=== PATIENT | male | born 1980 | race Hispanic/Latino ===

== ENCOUNTER 2018-05-29 17:03 | Inpatient (IN) | payer BC ==
[~2018-05-29] VITALS: Ht 177.8 cm; Wt 84.8 kg
--- OUTSIDE RECORDS SUMMARY | 2018-05-29 17:06 | XMS REPORT ---
Author Author [facility] Address Unknown Phone Unavailable Care Team Providers Care Vocational Training Teacher Name Role Phone Unavailable Unavailable Payers Payer Name Policy Type Policy Number Effective Date Expiration Date Problems This patient has no known problems. Allergies, Adverse Reactions, Alerts Allergy Name Allergy Type Status Severity Reaction(s) Onset Date Inactive Date Treating Clinician Comments No Known Allergies DA Active U 2018-05-21 00:00:00 No Known Contrast Allergies DA Active U 2000-10-27 00:00:00 No Known Drug Allergies DA Active U 2000-10-27 00:00:00 No Known Food Allergies DA Active U 2000-10-27 00:00:00 No Known Other Allergies DA Active U 2000-10-27 00:00:00 Medications This patient has no known medications.
[2018-05-29 17:39] LABS: BASOPHILS # (AUTO) 0.1 (0.0-0.1); BASOPHILS % 0.7 % (0.0-1.0); EOSINOPHILS # (AUTO) 0.2 (0.0-0.4); EOSINOPHILS % 1.2 % (0.0-6.0); HEMATOCRIT 45.4 % (38.2-49.6); HEMOGLOBIN 16.2 g/dL (14.0-18.0); LYMPHOCYTES # (AUTO) 3.2 (1.0-3.2); LYMPHOCYTES % 21.3 % (18.0-39.1); MEAN CORPUSCULAR HEMOGLOBIN 31.4 pg (28-32); MEAN CORPUSCULAR HGB CONC 35.7 g/dL (31-35); MONOCYTES # (AUTO) 1.4 (0.2-0.8); MONOCYTES % 9.2 % (4.4-11.3); NEUTROPHILS # (AUTO) 10.1 (2.1-6.9); NEUTROPHILS % 67.2 % (38.7-80.0); PLATELET COUNT 409 x10e3/uL (140-360); RED BLOOD COUNT 5.16 x10e6/uL (4.3-5.7); RED CELL DISTRIBUTION WIDTH 11.6 % (11.7-14.4)
[2018-05-29 17:51] LABS: INR 0.97; PROTHROMBIN TIME 13.8 seconds (11.9-14.5)
[2018-05-29 17:52] LABS: PARTIAL THROMBOPLASTIN TIME 34.7 seconds (23.8-35.5)
[2018-05-29 18:17] LABS: ALANINE AMINOTRANSFERASE 14 IU/L (0-55); ALBUMIN 4.2 g/dL (3.5-5.0); ALBUMIN/GLOBULIN RATIO 1.1 (0.8-2.0); ALKALINE PHOSPHATASE 92 IU/L (40-150); ANION GAP 12.7 mmol/L (8-16); BLOOD UREA NITROGEN 21 mg/dL (7-26); BUN/CREATININE RATIO 16 (6-25); CALCIUM 9.3 mg/dL (8.4-10.2); CARBON DIOXIDE 24 mmol/L (22-29); CHLORIDE 102 mmol/L (98-107); CREATINE KINASE 48 IU/L (30-200); EST GLOMERULAR FILTRATION RATE > 60 ML/MIN (60-); GLUCOSE 109 mg/dL (74-118); POTASSIUM 3.7 mmol/L (3.5-5.1); SODIUM 135 mmol/L (136-145)
--- NOTE | 2018-05-29 18:52 | Diagnostic Imaging Report ---
CT BRAIN WO HISTORY: Recent CVA, viral meningitis, left-sided weakness, tingling left arm COMPARISON: None. TECHNIQUE: Noncontrast axial scans were obtained from skull base to the vertex. Coronal and sagittal reconstructions obtained from the axial data. One or more of the following dose reduction techniques were used: Automated exposure control, adjustment of the mA and/or kV according to patient size, and/or utilization of iterative reconstruction technique. Beam hardening artifacts obscure some details. DISCUSSION: Scalp/Skull: Subcutaneous fat stranding along the posterior scalp is nonspecific. No calvarial fracture is seen. Brain sulci: Appropriate for patient's age. Ventricles: Normal in size and configuration. No hydrocephalus. Extra-axial spaces: No masses or fluid collections. 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 Otherwise, no additional masses, hemorrhage, or large vascular territory acute infarct. Ramirez-white matter differentiation is overall preserved. Dural sinuses: No abnormal densities. Sellar/Suprasellar region: Intact. Skull base: Intact. Incidental findings: There is minimal mucosal thickening in the right anterior ethmoid air cells. IMPRESSION: 1. 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 2. No additional intracranial abnormalities. Signed by: Dr. Eleno Whittaker M.D. on 05/29/2018 6:49 PM
[2018-05-29] MEDS ORDERED: ONDANSETRON HCL INJ 2MG/ML 2ML 2 MG/ML VIAL IV PRN ×2 (20:45)
[2018-05-29] MEDS ORDERED: PROMETHAZINE 12.5MG/ NACL 0.9% 12.5 MG/50 ML BAG IV PRN (20:45)
[2018-05-29] MEDS ORDERED: ZOLPIDEM TARTRATE 5 MG TAB PO PRN (20:45)
[2018-05-29] MEDS ORDERED: HYDROCODONE/APAP 7.5MG-325MG 1 EA TAB PO PRN (20:45)
[2018-05-29] MEDS ORDERED: DIPHENHYDRAMINE HCL INJ 50 MG/ML VIAL IV PRN (20:45)
[2018-05-29] MEDS ORDERED: LACTULOSE SYRUP 20 GM/30 ML UDC PO PRN (20:45)
[2018-05-29] MEDS ORDERED: HYDROMORPHONE 1MG/1ML INJ IV PRN (20:45)
[2018-05-29] MEDS ORDERED: IBUPROFEN 200 MG TAB PO PRN (20:45)
[2018-05-29 20:55] VITALS: BP 141/83
--- NOTE | 2018-05-29 20:55 | NUR ---
Patient arrived to floor from ED via wheelchair as new admit. at bedside. Pt placed on droplet isolation for diagnosis of Viral meningitis. Pt notably weak on left upper and left lower extremity. Pt states have difficulty swallowing regular solid food but able to drink or sip some water. Walker at bedside for prn use. Pt instructed need to call especially when needing to get up and out bed prn. Urinal at bedside. Call [facility]ca within reach. Will monitor closely.
[2018-05-29 21:00] VITALS: BP 141/83
[2018-05-29] MEDS ORDERED: HYDROMORPHONE 2MG/ML 2 MG/ML ML IV PRN (21:00)
--- NOTE | 2018-05-29 21:11 | NUR ---
REPORT CALLED TO FLOOR. SPOKE TO RN ABOUT MEDICAL RECORDS NEEDED FROM [facility].
[2018-05-30] VITALS (8 sets, daily range): BP systolic 115–155; BP diastolic 73–88
--- NOTE | 2018-05-30 05:29 | NUR ---
Patient sleeping comfortably. Condition stable. Call [facility]ca within reach.
[2018-05-30 06:00] LABS: BASOPHILS # (AUTO) 0.1 (0.0-0.1); BASOPHILS % 0.7 % (0.0-1.0); EOSINOPHILS # (AUTO) 0.2 (0.0-0.4); HEMOGLOBIN 14.1 g/dL (14.0-18.0); LYMPHOCYTES # (AUTO) 3.2 (1.0-3.2); LYMPHOCYTES % 26.3 % (18.0-39.1); MEAN CORPUSCULAR HEMOGLOBIN 30.3 pg (28-32); MEAN CORPUSCULAR HGB CONC 35.3 g/dL (31-35); MONOCYTES # (AUTO) 1.2 (0.2-0.8); MONOCYTES % 10.1 % (4.4-11.3); NEUTROPHILS # (AUTO) 7.4 (2.1-6.9); NEUTROPHILS % 60.6 % (38.7-80.0); PLATELET COUNT 364 x10e3/uL (140-360); RED BLOOD COUNT 4.65 x10e6/uL (4.3-5.7); RED CELL DISTRIBUTION WIDTH 11.7 % (11.7-14.4)
[2018-05-30 06:28] LABS: ANION GAP 11.2 mmol/L (8-16); BLOOD UREA NITROGEN 16 mg/dL (7-26); BUN/CREATININE RATIO 16 (6-25); CALCIUM 8.5 mg/dL (8.4-10.2); CARBON DIOXIDE 22 mmol/L (22-29); CHLORIDE 105 mmol/L (98-107); CREATININE, SERUM 1.03 mg/dL (0.72-1.25); EST GLOMERULAR FILTRATION RATE > 60 ML/MIN (60-); GLUCOSE 104 mg/dL (74-118); POTASSIUM 3.2 mmol/L (3.5-5.1); SODIUM 135 mmol/L (136-145)
--- NOTE | 2018-05-30 07:25 | NUR ---
PT IN BED SLEEPING NO DISTRESS NOTED,LINH JOE
--- NOTE | 2018-05-30 08:24 | NUR ---
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 CM/SW role and care transitions discussed. Anticipated discharge plan discussed along with duration of care. CM/SW discussed patients right to make decisions in care. CM/SW work hours given. 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 Education Needs: NONE IMM/AMES given and signed (if applicable): N/A Goal for discharge:TO DISCHARGE AND RETURN TO WORK RANJIT CM/SW left business card at the bedside with contact information. Name and number was also written on the patients whiteboard. Patient verbalized understanding of discussion. CM will follow-up with ongoing discharge and transition of care needs.
[2018-05-30] MEDS: FAMOTIDINE 20 MG TAB PO SCH ×2 (08:30→16:30)
[2018-05-30] MEDS ORDERED: POTASSIUM CHLORIDE 20 MEQ TAB CR PO STA (11:49)
[2018-05-30] MEDS ORDERED: LACTULOSE SYRUP 20 GM/30 ML UDC PO NR (13:00)
--- NOTE | 2018-05-30 14:33 | NUR ---
ST Note: Order received for bedside swallow eval. Pt out of room for procedure. Pt's at bedside. Gathered pertinent medical history from pt's spouse and provided ed re: the role of this service. Provided ed re: general swallow precautions. Will f/u later to complete eval time permitting.
--- NOTE | 2018-05-30 15:45 | NUR ---
Visit made by the Spiritual Care Department Pastoral Visitor, Nely Choi. PV provided pastoral presence, prayer, hospitality, and supportive listening. Pastoral Visitor informed pt/family of the scope of Pol[employer] T[employer] Services and availability. SHIRA SHEETS Edge Setter Spiritual Care Department O: [phone] Pager: [phone] ([phone] number calling from)
--- NOTE | 2018-05-30 16:06 | Diagnostic Imaging Report ---
Examination: MRI BRAIN WITHOUT CONTRAST History: Headache. Comparison studies: Head CT performed May 29, 2018 Technique: Sagittal T2; axial DWI, FLAIR, GRE or SWI, T1, Coronal FLAIR. Intravenous contrast: None Findings: Scalp: No abnormal signal. No masses. Bone marrow: Normal in signal intensity. Brain volume: Adequate for age. No volume loss. Ventricles: Normal in size and configuration. No hydrocephalus. Extra-axial spaces: No abnormalities. Parenchyma: There are a few scattered punctate areas of T2/FLAIR hyperintensity in the periventricular and subcortical white matter, nonspecific. No masses, hemorrhage, or acute vascular insults. Suprasellar and sellar region: No abnormalities. Craniocervical junction: No abnormalities. The foramen magnum is patent. No Chiari malformations. Vessels: Normal flow-voids in the arteries and sinuses. Additional findings:None. IMPRESSION: 1. No acute intracranial abnormalities. 2. Minimal chronic microvascular ischemic change. Signed by: Dr. Marisel Hall M.D. on 05/30/2018 4:03 PM
--- NOTE | 2018-05-30 17:06 | Consultation ---
DATE OF CONSULTATION: INFECTIOUS DISEASE CONSULTATION REASON FOR CONSULTATION: Meningitis, viral. HISTORY OF PRESENT ILLNESS: This patient, who is a 38-year-old male, denies any past medical history. He was in good health until about 10 days ago when he had weakness. He went to the emergency room at [facility] where he was admitted. He was there for about 3 to 4 days. He was seen by Neurology there. LP was done, and he was told he had meningitis, his white count apparently was 15, but he was also told he had a stroke. He had left-sided weakness. The patient was there for a few days and was discharged home with no medication or antibiotic or anything that he could think of. He went to see his primary care physician, who told him that he needed to be in the hospital. His weakness on the left side is about the same. There is no fever, no chills. There are no new complaints. There is no headache or visual changes or hearing changes. There is no confusion through the whole episode. Patient is being admitted. Infectious Disease was asked to see him. He is currently on Tylenol, Benadryl, Pepcid, hydrocodone, lactulose. LABORATORY DATA: White count on admission was 15.5, today is 12.1. Hemoglobin of 14, hematocrit of 40. His sodium 135, potassium 3.2, creatinine 1.03. When he first came, his creatinine was 1.30. The patient had an MRI of the brain which was done without contrast, showed no acute abnormality. 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 PHYSICAL EXAMINATION GENERAL: He is alert, oriented, does not seem to be in acute distress. VITAL SIGNS: Stable. There is no fever since admission. HEENT: He does not appear icteric. NECK: Supple. CHEST: Clear. HEART: S1 and S2. No S3 or S4, no murmur. ABDOMEN: Soft. Bowel sounds present. No tenderness. EXTREMITIES: No edema. He did have some left-sided weakness, but he was able to lift up his arms and his legs. He was able to have a strong manufacturing analyst. IMPRESSION: Stroke. Will need to get the old record. Further recommendations depending on the above. Neurology is consulted. Doubt meningeal encephalitis. Will obtain HIV. Will obtain blood cultures and will get a chest x-ray. A component of acute kidney injury, probably dehydration, better. Patient stable. Will follow with you. Job#: [id number] EV
--- NOTE | 2018-05-30 17:18 | NUR ---
Nutrition Intervention Note RD Recommendation(s) for Physician: -Continue cardiac diet as ordered; diet texture downgraded to mechanical soft for better tolerance -Pending PAINT BOOTH OPERATOR evaluation -Rec Ensure Compact TID due to hx of weight loss The patient meets criteria for MODERATE protein-calorie malnutrition. Plan of Care: RD following, monitoring for tolerance and adequacy, ONS rec Nutrition reason for involvement: Nutrition Risk Trigger MST RD Assessment 05/30 Chart reviewed. 38yo M, who is admitted for meningitis. Pt was discussed during rounds. Visited pt in the room. 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 Pt reports of ~9lbs weight loss in 2 weeks. UBW ~210lbs. However, appetite has slightly improved today with some complain of swallowing difficulty. Pt states when I take a few bites of food, it stuck in my throat and I had to drink water to get it down. No chewing difficulty noted. Pt complains of constipation x 9 days but has been passing gas. Discussed case with Dr. Menon. PAINT BOOTH OPERATOR consulted. Ensure compact has been ordered. Will continue to monitor and follow. Principal Problems/Diagnoses: viral meningitis PMH: no H&P in chart GI: constipated x 9 days, per pt Skin: intact Labs: (05/30) Na 135 L, K 3.2 L Meds: pepcid Ht: 70in Wt: 189lb BMI: 27.2kg/m2 IBW: 166lb Malnutrition Evaluation (05/30/2018) The patient meets criteria for MODERATE protein-calorie malnutrition. Energy intake: <75% of estimated energy requirements for >7 days Weight loss: >2% in 1week (Acute) Fat loss: None Muscle loss: None Supporting Evidence: Fluid accumulation: unable to evaluate Functional Status: no changes Nutrition Prescription (Diet Order): cardiac diet Estimated Nutritional Needs: Calories: 1892 2150kcal (22-25kcal/kg/d) Weight used : Actual BW 86kg Protein : 86 129g(1-1.5g/kg/d) Weight used: Actual BW 86kg Diet Adequacy: N/A Diet Education Needs Assessment: Diet education not indicated. Nutrition Care Level: mod Nutrition Diagnosis: Malnutrition related to acute illness as evidenced by unintentional weight loss and decreased energy intake. Goal: Patient will meet 75-100% of estimated needs by follow up Progress: Progressing Interventions: Mineral-modified diet, Commercial beverage, Recommended Modifications, Skill Development, Collaboration with other providers Monitoring/Evaluation: Total energy intake, Total protein intake, Modified diet, Liquid supplement, Weight change Signed: Yaa Walter MS, RD, LD
--- NOTE | 2018-05-30 17:51 | NUR ---
dr morales here orders written ,pt denies [pain
[2018-05-30] MEDS ORDERED: VALPROATE SOD INJ 500 MG in SODIUM CHLORIDE 0.9% 100 ML 100 ML IV SCH (18:00)
[2018-05-30] MEDS: SODIUM CHLORIDE 0.9% 1000ML 1,000 ML IV SCH (18:37)
[2018-05-30] MEDS: METHYLPREDNISOLONE SOD SUCC 125 MG/2ML VIAL IV SCH (18:37)
[2018-05-30] MEDS: PROMETHAZINE 25MG/ NS 50ML (IV) IV SCH (18:37)
--- NOTE | 2018-05-30 19:05 | NUR ---
Patient visited in room during nursing rounds. Patient alert and oriented x3. Patient appear comfortable. IVF (NS @ 125ml/hr) running. Call [facility] within reach. Will monitor closely.
--- NOTE | 2018-05-30 19:50 | NUR ---
Patient c/o right arm to right shoulder feeling numb with tingling sensation described as "ants crawling on arm." Patient request to turn off IVF temporarily for possible relief and requested for Motrin pill for achy feeling. Informed patient will call Dr. Shane to report patient current condition.
--- NOTE | 2018-05-30 19:58 | NUR ---
Called Dr. Shane and informed about patient complaint of tingling and numb feeling on right arm radiating towards right shoulder. MD aware and emphasized patient current complaint of tingling and numbness is not connected to any current medications or IVF. MD stated patient needs to relax.
--- NOTE | 2018-05-30 20:05 | NUR ---
Patient given Motrin 400mg PO for c/o right arm and right shoulder aches.
--- NOTE | 2018-05-30 20:30 | NUR ---
Patient asleep and appear comfortable at this time. at bedside.
[2018-05-31] VITALS (7 sets, daily range): BP systolic 133–146; BP diastolic 73–84
[2018-05-31] MEDS: PROMETHAZINE 25MG/ NS 50ML (IV) IV SCH (00:12)
[2018-05-31] MEDS: METHYLPREDNISOLONE SOD SUCC 125 MG/2ML VIAL IV SCH (00:12)
--- NOTE | 2018-05-31 00:52 | Consultation ---
DATE OF CONSULTATION: May 30, 2018 NEUROLOGY CONSULT NOTE HISTORY OF PRESENT ILLNESS: Mr. Lei is a 38-year-old [id number] man with past medical history significant for occasional migraines, admitted to [facility] on May 29, 2018 with a severe headache and left hemiparesis. Mr. Lei experienced the sudden onset of left hemiparesis on May 21, 2018. In addition to left-sided weakness, the patient endorses tingling over the left side of the face and left hand and arm. He reports his left leg is cool to the touch. In addition to these unilateral deficits, the patient endorses a headache which is described as follows: The pain is unilateral over the right side of the head and does not radiate. The pain is described as throbbing and is rated as 7/10 on average. At present, the pain is a 4/10. Associated with the headache are photophobia and phonophobia, which have gradually improved over the past several days. Mr. Lei endorses nausea without vomiting and dizziness which cannot be further described, associated with the headache as well. On May 21, 2018, Mr. Lei presented to [facility] with the above described symptoms. In the emergency center, a CT of the brain without contrast was performed and was reportedly negative for recent large territorial ischemia or hemorrhage. Suspecting the patient had experienced a stroke, intravenous thrombolytics (tPA) were administered. However, there was no improvement of the patient's symptoms. A MRI of the brain without contrast was performed the following day, but did not show evidence of a recent stroke. However, the MRI of the brain reportedly showed findings compatible with migraines. Therefore, Mr. Lei received treatment with different medications for a complex migraine. On the day prior to his discharge, the patient underwent a lumbar puncture, which was compatible with viral meningitis. Mr. Lei reports he was sent home the day after the lumbar puncture. He continued to have the headache and left-sided neurological symptoms as described above. The patient was discharged home with oral steroids, anti-inflammatory medication, and hydrocodone. Mr. Lei took the prescribed medications while at home. However, he experienced multiple side effects, including visual hallucinations, associated with taking the medicines, especially hydrocodone. Therefore, Mr. Lei stopped taking all of the above medications on Monday, May 28, 2018. On May 29, 2018, the patient presented to his primary care physician's office for further evaluation and treatment of his symptoms. Mr. Lei was reportedly febrile in his PCP's office. Therefore, the patient was sent to the emergency center at [facility] so he could be admitted for further evaluation and treatment of his symptoms. Mr. Lei does endorse a history of regular migraines which respond to treatment with dqqb-vzf-fxyytwn analgesics (Excedrin). The patient's mother and the son have/had migraines. REVIEW OF SYSTEMS: Nausea, vomiting, weakness of the left arm and leg, numbness and tingling of the left arm and leg, neck pain, headache, photophobia, phonophobia, and dizziness. Otherwise, the 12-point review of systems is negative. PAST MEDICAL HISTORY: Occasional migraines. PAST SURGICAL HISTORY: None. PAST HOSPITALIZATIONS: As per history of present illness. FAMILY MEDICAL HISTORY: Hypertension, diabetes mellitus, strokes. As stated in the history of present illness, the patient's mother and a son both have/had migraines. SOCIAL HISTORY: Mr. Lei is . 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 The patient does report occasional tobacco use. He smokes 1 to 2 cigarettes every 2 to 3 months. The patient reports social alcohol use. Mr. Lei does not endorse current or prior recreational drug use. HOME MEDICATIONS: None. ALLERGIES: NO KNOWN DRUG ALLERGIES. NO KNOWN FOOD ALLERGIES. NO KNOWN ALLERGIES TO LATEX. NO KNOWN ALLERGIES TO IODINE OR OTHER CONTRAST MATERIALS. PHYSICAL EXAMINATION: VITAL SIGNS: Height 70 inches, weight 189 pounds, BMI 27.2 kg/sq m. Blood pressure 155/88 mmHg, pulse 94 beats per minute, respiratory rate 19 breaths per minute, oxygen saturation 95% on room air. GENERAL: The patient is awake and alert, mildly distressed secondary to pain. HEENT: Normocephalic, atraumatic. Pupils are equal, round, and reactive to light. Moist mucous membranes. NECK: Supple. Negative Kernig's and Brudzinski signs. No appreciable thyromegaly. No appreciable carotid bruits. CARDIOVASCULAR: S1, S2, regular rate and rhythm. No murmurs, rubs, or gallops. RESPIRATORY: Clear to auscultation bilaterally. No wheezes, rhonchi, or rales. EXTREMITIES: The skin is warm and dry. No clubbing, cyanosis, or edema. The posterior tibial and dorsalis pedis pulses are 2+ and symmetric. SKIN: No rashes or lesions. NEUROLOGIC EXAMINATION: MEMORY/ATTENTION: The patient is awake and alert, oriented to person, place, time, and situation. CRANIAL NERVES: Cranial nerve I - not tested. Cranial nerves II, III, IV, and - Pupils are equal and round, reacts briskly to light (from 4 mm to 2 mm). Extraocular movements intact. Left lid ptosis. No nystagmus. Cranial nerve V - Sensation to light touch is diminished over the right V1 through V3 distributions. Sensation to pinprick is intact in the bilateral V1 through V3 distributions. Strength of the temporalis and masseter muscles is within normal limits. Cranial nerve VII - The face is symmetric as are all facial movements. Strength is within normal limits. Cranial nerve VIII - Hearing is intact to finger rub bilaterally. Cranial nerve IX, X - The soft palate elevates equally and symmetrically. Cranial nerve XI - Normal strength of the bilateral sternocleidomastoid and trapezius muscles. Cranial nerve XII - The tongue protrudes midline and moves symmetrically from side to side. STRENGTH: Bulk is normal. Strength is 5/5 in the right deltoid, biceps, triceps, wrist flexors and extensors, finger flexors and extensors, intrinsic hand muscles, hip flexors, knee flexors and extensors, ankle dorsiflexion and plantarflexion, and intrinsic foot muscles. Tone is normal. Strength is 4/5 in the left deltoid, biceps, triceps, wrist flexors and extensors, finger flexors and extensors, intrinsic hand muscles, hip flexors, knee flexors and extensors, ankle dorsiflexion and plantarflexion, and intrinsic foot muscles. Tone is normal. There is superimposed effort-dependent weakness in multiple muscles examined in the left arm and left leg. DTRs: Deep tendon reflexes are 1+ and symmetric at the triceps, biceps, brachioradialis, patellas, and Achilles. Plantar responses are flexor bilaterally. SENSATION: Sensation is diminished to light touch and pinprick in the right arm and leg, intact to light touch and pinprick in the left arm and leg. CEREBELLAR: Jsewui-yixt-tdgqyg and heel-mcintyre movements are intact without dysmetria or other impairment. GAIT: Deferred. SPEECH: Spontaneous speech is normal without appreciable dysarthria or aphasia. Repetition is intact. INVOLUNTARY MOVEMENTS: None. PRONATOR DRIFT: None. LABORATORY DATA: The most recent basic metabolic panel is significant for a sodium of 135 and a potassium of 3.2. A liver function panel drawn on May 29, 2018 is unremarkable. Cardiac enzymes are negative x1. The CBC with differential and platelets reveals a mildly elevated white blood cell count of 12.14 with a normal differential. The hemoglobin and hematocrit are 14.1 and 40.0, respectively. The platelet count is 364,000. PT, PTT, and INR are within normal limits. DIAGNOSTIC STUDIES: 1. Electrocardiogram, May 29, 2018: Sinus tachycardia at 101 beats per minute. 2. Echocardiogram, May 30, 2018: The ejection fraction is 45 to 50%. There is trace right-sided pericardial effusion. There are no significant valvular abnormalities. 3. CT of the brain without contrast, May 29, 2018: On my review, there is no evidence of recent large territorial ischemia, hemorrhage, mass, or mass effect. Cerebral volumes are appropriate for age. There are findings suggestive of mild chronic small-vessel ischemic disease. 4. MRI of the brain without contrast, May 30, 2018: On my review, there is no evidence of recent or remote large territorial ischemia, hemorrhage, mass, or mass effect. Cerebral volumes are appropriate for age. There are scattered nonspecific T2/FLAIR hyperintense foci in the periventricular and subcortical white matter compatible with mild chronic small-vessel ischemic disease. ASSESSMENT AND PLAN: Mr. Lei is a 38-year-old man with past medical history significant for occasional migraines, admitted to [facility] with a unilateral headache with vascular features and left hemiparesis and right hemisensory loss. The patient has undergone a thorough neurological examination with findings detailed above. His laboratory data and other diagnostic studies have been reviewed. Based on the patient's history and neurological examination, there is a low suspicion for meningitis, viral or otherwise. There is nothing in the patient's neurological examination which suggests a lesion of the central nervous system. Based on the history, the most likely diagnosis is a complex migraine with status migrainosus. RECOMMENDATIONS FOR TREATMENT: As follows: 1. Normal saline at 125 mL per hour intravenously will be prescribed. 2. Promethazine 25 mg intravenously every 6 hours x2 doses will be prescribed. 3. Methylprednisolone 125 mg intravenously every 6 hours x2 doses will be prescribed. 4. Valproate sodium 500 mg intravenously every 6 hours x2 doses will be prescribed. 5. Review of the medical records from the outside hospital will be completed once those records are available. 6. Further recommendations will be made based on the patent's response to the above treatment. Thank you for this consultation. I will continue to follow the patient while he remains in the hospital. TIME SPENT: 70 minutes. Job#: [id number] DR BURROUGHS
--- NOTE | 2018-05-31 01:45 | NUR ---
Patient taking a shower accompanied by .
[2018-05-31] MEDS ORDERED: VALPROATE SOD INJ 500 MG in SODIUM CHLORIDE 0.9% 100 ML 100 ML IV SCH (03:00)
--- NOTE | 2018-05-31 05:00 | Consultation ---
DATE OF CONSULTATION: May 30, 2018 PULMONARY MEDICINE CONSULT REASON FOR REFERRAL: Shortness of breath. HISTORY: Mr. Lei is a pleasant 38-year-old gentleman with shortness of breath. Patient was recently admitted on May 21, 2018, to outside hospital where he had hemiparesis and numbness. Patient received emergent tPA. It was also identified at that time the patient had URI type of symptoms. Patient had a CT of the head showing no acute cranial abnormality. Patient was within the 3 to 4-1/2 hour window at that time. Patient due to was recommended for lumbar puncture at that time. He had persistent headache. Patient with unremarkable MRA of the head. Patient had MRI of the brain with minimal scattered small T2 flare subcortical white matter and hyperintense foci that were very nonspecific. On LP, the patient with opening pressure of 28 cm and closing pressure 19 cm after removing 21 mL of fluid. Cultures were unremarkable. CSF cytology was unremarkable. CSF glucose was 67 and CSF total protein was 44. West Nile virus was negative. titer was negative. CSF white blood cells were 3. Patient reportedly was discharged and went to rehabilitation for 4 days for which he was eventually discharged. As the patient may have , he was sent back to the emergency room for further evaluation. He was having poor ability to speak as he gets short of breath on talking. He has difficulty mobilizing secretions at the larynx. I am consulted. Patient came to [facility]. Patient was having worsening left-sided weakness. I am consulted. PAST MEDICAL HISTORY: Migraines. FAMILY HISTORY: Noncontributory to this condition. SOCIAL HISTORY: Patient is . He smokes 1-3 cigarettes per week. No alcohol use. No drugs. 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 REVIEW OF SYSTEMS GENERAL: No weight changes. OPHTHALMOLOGY: No double vision. ENT: No dry mouth. ENDOCRINE: No thyroid disease. CARDIAC: No heart attacks. PULMONARY: No asthma. GI: No constipation. : No blood in the urine. NEUROLOGIC: No known seizures. DERMATOLOGIC: No rashes. MEDICATIONS: Per record. ALLERGIES: THE PATIENT HAS NO KNOW DRUG ALLERGIES. PHYSICAL EXAMINATION VITALS: Afebrile. Vital signs noted per electronic record. GENERAL: In no acute distress. Alert and calm. HEENT: Normocephalic and atraumatic. NECK: Supple. Throat midline. LUNGS: Bilateral air entry. Clear. There is some very mild dysphonia noted. CARDIOVASCULAR: S1 and S2. No murmurs, rubs or gallops. ABDOMEN: Soft and nontender. EXTREMITIES: No clubbing. No cyanosis. There is no edema. INTEGUMENT: No rash. No purpura. LABS: Per electronic record. Includes white count 15, hematocrit 45, and platelets 409,000. Chemistry: Sodium 135, creatinine 1.3. LFTs unremarkable except for globulin which are elevated at 3.8. IMPRESSION AND PLAN 1. Mild dysphonia, under evaluation. 2. Shortness of breath, mild. 3. Acute neurologic syndrome with left-sided hemiparesis and dysphonia and possible dysphagia. 4. Possible migraines. 5. Current smoking. Continue serial evaluations. Check PFTs tomorrow. Will add additional neuromuscular parameters to be checked during breathing test. Afterwards, will get him to walk with PT. Patient will continue current care as recommended by the neurologist. Thank you very much, Dr. Menon, for allowing me the chance to participate in the care of Mr. Lei. Do not hesitate to contact me if I can help in any way. Job#: [id number] BREANNA
[2018-05-31] MEDS: SODIUM CHLORIDE 0.9% 1000ML 1,000 ML IV SCH ×4 (05:07→23:32)
--- NOTE | 2018-05-31 05:10 | NUR ---
Patient sleeping comfortably. No sign of discomfort or pain. Call gasca within reach. Will continue to monitor.
[2018-05-31] MEDS: FAMOTIDINE 20 MG TAB PO SCH ×2 (06:25→15:33)
[2018-05-31] MEDS: ACETAMINOPHEN 325 MG TAB PO PRN ×2 (11:39→18:37)
--- NOTE | 2018-05-31 14:02 | Progress Note ---
DATE: May 31, 2018 PULMONARY MEDICINE PROGRESS NOTE SUBJECTIVE: Mr. Lei was seen and examined at bedside. He continues to have steady progress. Patient at this time remains with weakness on the left side. Furthermore, on his voice he still has a raspy wet quality to it. Patient reportedly with trouble swallowing. Patient at this time about the same as yesterday. REVIEW OF SYSTEMS: No headaches. No bleeding. OBJECTIVE VITALS: Afebrile. Vital signs noted per electronic record. GENERAL: No acute distress. Alert and calm. HEENT: Normocephalic and atraumatic. NECK: Supple. Throat midline. LUNGS: Bilateral air entry, few mostly clear lung morris. CARDIOVASCULAR: S1 and S2. No murmurs, rubs or gallops. ABDOMEN: Soft and nontender. EXTREMITIES: No clubbing. No cyanosis. There is no edema. INTEGUMENT: No rash. No purpura. LABS: BUN 16, creatinine 1. White count 12, hematocrit 40 and 3.2 potassium. IMPRESSION AND PLAN 1. Dysphonia, not otherwise specified. 2. Possible dysphagia. 3. Shortness of breath: No functional endurance. 4. Syndrome of hemiparesis and some possible left facial weakness. At this time, we should continue serial neurologic exams and respiratory exams. PFTs are due today. Continue incentive spirometry, which has been provided. Will follow up closely to ensure improvement. Follow up with neurology as a considered differential whether it is migraines or other neurologic phenomenon. Job#: [id number] BREANNA
--- NOTE | 2018-05-31 14:30 | NUR ---
PFT DONE BEDSIDE SUPINE AND HIGH FOWLERS. NIF DONE = -55
--- NOTE | 2018-05-31 19:16 | NUR ---
PATIENT IS IN STABLE CONDITION WITH NO S/S OF RESPIRATORY DISTRESS. TYLENOL GIVEN TO PATIENT. IV FLUIDS INFUSING. BED ALARM APPLIED. CALL LIGHT IS WITHIN REACH, INSTRUCTED TO CALL FOR ASSISTANCE NEEDED. REPORT GIVEN TO ONCOMING NURSE.
--- NOTE | 2018-05-31 19:27 | NUR ---
PT IS RESTING IN BED. NO RESPIRATORY DISTRESS NOTED. BED IN LOWEST POSITION, LOCKED, BED ALARM ON, AND CALL LIGHT WITHIN REACH. WILL CONTINUE TO MONITOR.
[2018-05-31] MEDS ORDERED: SODIUM CHLORIDE 0.9% 50ML 50 ML ONE (22:28)
[2018-05-31] MEDS ORDERED: IOPAMIDOL 370 MG/ML 200 ML INFUS..BTL INJ ONE (22:29)
--- NOTE | 2018-05-31 22:35 | Diagnostic Imaging Report ---
History: Trouble swallowing, left vocal cord paralysis. Comparison studies: None Technique: Axial, coronal and sagittal images from the skull base to the thoracic inlet. Coronal and sagittal images reconstructed from the axial data. Dose modulation, iterative reconstruction, and/or weight based adjustment of the mA/kV was utilized to reduce the radiation dose to as low as reasonably achievable. Intravenous contrast: 100 cc of Isovue 370. Findings: Soft tissues: Mild asymmetric widening of right pyriform sinus and minimal asymmetric thickening of left aryepiglottic fold. No anteromedial deviation of the aretynoid and no asymmetric widening of laryngeal ventricle. Airway is patent. Masses: None. Lymph nodes: No radiographically significant adenopathy. Vessels: Arteries and veins are patent. Glands (thyroid, parotid and submandibular): Normal in size and symmetric. No masses. Orbits: No abnormalities. Paranasal sinuses: Minimal mucosal thickening in right ethmoid sinus. Temporal bones: No abnormalities. Skull base and facial bones: Intact. Cervical spine: No significant abnormality. IMPRESSION: 1. Mild asymmetric widening of right pyriform sinus and minimal asymmetric thickening of left aryepiglottic fold (findings are not typical for unilateral vocal cord paralysis). Recommendation: ENT consultation and direct examination for further assessment. 2. No discrete soft tissue mass or worrisome lateral cervical lymphadenopathy. Signed by: Dr. Bekha Arteaga M.D. on 05/31/2018 10:32 PM
--- NOTE | 2018-05-31 22:36 | Diagnostic Imaging Report ---
EXAM: CT CHEST W INDICATION: Difficulty swallowing, vocal cord paralysis COMPARISON: None TECHNIQUE: Multidetector CT scanning of the chest was performed. Coronal and sagittal multiplanar reformations were obtained. Dose modulation, iterative reconstruction, and/or weight based adjustment of the mA/kV was utilized to reduce the radiation dose to as low as reasonably achievable. Routine protocol performed. IV Contrast: 100 cc Isovue-370 CTDIvol has been reviewed. It is below the limits set by the Radiation Protocol Committee (RPC). FINDINGS: LUNGS AND AIRWAYS: The trachea and major bronchi are unremarkable. Mild bibasilar atelectasis. PLEURA: No effusions or pneumothorax. HEART, MEDIASTINUM, VESSELS: The heart is within normal size limits. No pericardial effusion. No mediastinal mass or lymphadenopathy. Normal appearance of the vessels. UPPER ABDOMEN: Normal MUSCULOSKELETAL: No acute findings. IMPRESSION: Normal CT of the chest. No mediastinal mass. Signed by: Dr. Cailin Cadena M.D. on 05/31/2018 10:33 PM
[2018-06-01] VITALS (8 sets, daily range): BP systolic 120–143; BP diastolic 72–89
--- NOTE | 2018-06-01 00:05 | Consultation ---
DATE OF CONSULTATION: May 31, 2018 HOSPITAL CONSULTATION HISTORY OF PRESENT ILLNESS: I was kindly asked to see this pleasant 38-year-old man for evaluation of difficulty swallowing and hoarseness. Patient presents with a history of initially having "stroke-like" symptoms and was subsequently evaluated and found to have viral meningitis. He was discharged home, but symptoms persisted and he was then readmitted. Since the onset of his symptoms, he has had difficulty swallowing, which has not significantly improved. He also has had a persistently hoarse voice. PAST MEDICAL HISTORY AND PAST SURGICAL HISTORY: Reviewed in detail in the chart. PHYSICAL EXAMINATION: There was cerumen in the medial aspect of the external auditory canals bilaterally. The visualized portion of the tympanic membranes is unremarkable. Nasal examination showed a nasal septal deviation to the left. There was minimal nasal mucosal edema. Oral cavity examination showed normal tongue. Posterior pharyngeal wall was unremarkable. He had normal soft palate elevation. There was no palpable cervical adenopathy. On fiberoptic diagnostic laryngoscopy, he had left vocal cord paralysis with inadequate glottic closure. There were no masses present. ASSESSMENT: 1. Left true vocal cord paralysis. 2. Dysphagia. 3. Hoarseness. 4. Nasal septal deviation. PLAN: CT scan of the neck and chest to rule out compression of the laryngeal nerve. Thank you very much. Job#: [id number]
--- NOTE | 2018-06-01 00:08 | NUR ---
PT REFUSE BED ALARM. PER PT HIS WILL ASSIST HIM TO THE BATHROOM.
[2018-06-01] MEDS: ACETAMINOPHEN 325 MG TAB PO PRN ×3 (07:01→21:27)
--- NOTE | 2018-06-01 07:11 | NUR ---
PATIENT IS AWAKE AND IN STABLE CONDITION WITH NO S/S OF RESPIRATORY DISTRESS. PATIENT RECEIVED TYLENOL FOR HEAD PAIN RECENTLY. IV FLUIDS INFUSING. PRESENT IN ROOM. CALL LIGHT IS WITHIN REACH, INSTRUCTED TO CALL FOR ASSISTANCE NEEDED.
[2018-06-01] MEDS: FAMOTIDINE 20 MG TAB PO SCH (08:47)
[2018-06-01] MEDS: SODIUM CHLORIDE 0.9% 1000ML 1,000 ML IV SCH (08:49)
--- NOTE | 2018-06-01 11:03 | NUR ---
CALLED AND SPOKE WITH DR. HOOD REGARDING PATIENT'S COUGH EARLIER THIS MORNING- NEW ORDER RECEIVED FOR PRN MEDICATION WELL CHEST XRAY.
[2018-06-01] MEDS ORDERED: HYDROMORPHONE 2MG/ML 2 MG/ML ML IV PRN (11:15)
[2018-06-01] MEDS ORDERED: HYDROCODONE/APAP 7.5MG-325MG 1 EA TAB PO PRN (11:15)
--- NOTE | 2018-06-01 12:40 | Diagnostic Imaging Report ---
EXAMINATION: PA and lateral views of the chest. COMPARISON: None CLINICAL HISTORY: Follow-up aspiration DISCUSSION: Lines/tubes: None. Lungs: Mild left lower lung atelectasis versus aspiration/pneumonia.. Pleura: There is no pleural effusion or pneumothorax. Heart and mediastinum: The cardiomediastinal silhouette is normal. Bones and soft tissues: No acute bony abnormalities. IMPRESSION: Mild left lower lung atelectasis less likely aspiration/pneumonia. Signed by: Dr. Marcio Rapp M.D. on 06/01/2018 12:37 PM
[2018-06-01] MEDS: BENZONATATE 100 MG CAP PO PRN ×2 (13:06→23:54)
--- NOTE | 2018-06-01 13:39 | Progress Note ---
DATE: June 01, 2018 PULMONARY MEDICINE PROGRESS NOTE SUBJECTIVE: Mr. Lei was seen and examined at bedside. He continues to have improvement. He remains off steroids. He walks in the limon to the nurse's station per report. Patient has evaluation by ENT expert and a left vocal cord paralysis was proved yesterday. Patient will have CT scans done, and these were just done and reported. I reviewed the CT of the chest, which was unremarkable, except for bilateral atelectasis versus pneumonitis, mild. CT of the neck was reported with no acute findings and no findings to explain the vocal cord paralysis. He is eating, but some times has a cough. REVIEW OF SYSTEMS: No headaches. No GI bleed. OBJECTIVE VITALS: Afebrile. Vital signs noted per electronic record. GENERAL: In no acute distress. Alert and calm. HEENT: Normocephalic and atraumatic. NECK: Supple. Throat midline. LUNGS: Bilateral air entry. Rare rhonchi. CARDIOVASCULAR: S1 and S2. No murmurs, rubs or gallops. ABDOMEN: Soft and nontender. EXTREMITIES: No clubbing. No cyanosis. There is no edema. INTEGUMENT: No rash. No purpura. LABS: Potassium 3.2 was the last one that has been replaced since. Other labs per record. No new updates from today. IMPRESSION AND PLAN 1. Neurologic syndrome with left-sided hemiparesis and other cranial nerve findings, including eyelid droop and left vocal cord paralysis. 2. Left vocal cord paralysis, associated dysphonia and dysphagia. 3. Bilateral abnormal chest opacities, radiographic, atelectasis versus pneumonitis. Continue therapy with speech for strengthening of the patient's oropharynx and pharyngeal muscles. Continue to follow up with neurology for best diagnosis. The patient will continue to have modified behavior on eating to try to avoid aspiration. Patient likely with some decreased cough likely due to vocal cord paralysis versus due to other respiratory impairment. His PFTs were limited in technique. They are not conclusive. Job#: [id number] AL
--- NOTE | 2018-06-01 14:30 | NUR ---
Nutrition Intervention Note RD Recommendation(s) for Physician: - Continue cardiac diet as ordered; diet texture per QUALITY ASSURANCE PRACTICE MANAGER - Continue Ensure Compact TID due to hx of weight loss The patient meets criteria for MODERATE protein-calorie malnutrition. Plan of Care: RD following, monitoring for tolerance and adequacy, ONS rec Nutrition reason for involvement: Follow up RD Assessment 06/01 Chart reviewed. Spoke with QUALITY ASSURANCE PRACTICE MANAGER Ivelisse about swallow study recommendation. ENT evaluated pt and proved a left vocal cord paralysis. Pt is to continue therapy with QUALITY ASSURANCE PRACTICE MANAGER. Visited pt in the room. Pt is slight agitated due to his cough. However, pt has good appetite with 75-100% meal intake. Tolerating mechanical soft diet. No GI complains noted. LBM 05/31. Will continue to monitor and follow. 05/30 Chart reviewed. 38yo M, who is admitted for meningitis. Pt was discussed during rounds. Visited pt in the room. 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 Pt reports of ~9lbs weight loss in 2 weeks. UBW ~210lbs. However, appetite has slightly improved today with some complain of swallowing difficulty. Pt states when I take a few bites of food, it stuck in my throat and I had to drink water to get it down. No chewing difficulty noted. Pt complains of constipation x 9 days but has been passing gas. Discussed case with Dr. Menon. QUALITY ASSURANCE PRACTICE MANAGER consulted. Ensure compact has been ordered. Will continue to monitor and follow. Principal Problems/Diagnoses: viral meningitis PMH: none GI: LBM 05/31 Skin: intact Labs: No labs since 05/30 (05/30) Na 135 L, K 3.2 L Meds: pepcid, IVF Ht: 70in Wt: 189lb BMI: 27.2kg/m2 IBW: 166lb Malnutrition Evaluation (05/30/2018) The patient meets criteria for MODERATE protein-calorie malnutrition. Energy intake: <75% of estimated energy requirements for >7 days Weight loss: >2% in 1week (Acute) Fat loss: None Muscle loss: None Supporting Evidence: Fluid accumulation: unable to evaluate Functional Status: no changes Nutrition Prescription (Diet Order): cardiac diet Estimated Nutritional Needs: Calories: 1892 2150kcal (22-25kcal/kg/d) Weight used : Actual BW 86kg Protein : 86 129g (1-1.5g/kg/d) Weight used: Actual BW 86kg Diet Adequacy: Meeting protein need, meeting calorie need Diet Education Needs Assessment: Diet education not indicated. Nutrition Care Level: low Nutrition Diagnosis: Malnutrition related to acute illness as evidenced by unintentional weight loss and decreased energy intake. Goal: Patient will meet 75-100% of estimated needs by follow up Progress: Goal met Interventions: Mineral/ texture-modified diet, Commercial beverage, Recommended Modifications, Skill Development, Collaboration with other providers Monitoring/Evaluation: Total energy intake, Total protein intake, Modified diet, Liquid supplement, Weight change Signed: Yaa Walter, MS, RD, LD
--- NOTE | 2018-06-01 15:42 | Pulmonary Function Test ---
DATE OF STUDY: May 31, 2018 REFERRING PHYSICIANS: Dr. Miguel Lock, Dr. Eleanor Menon. SPIROMETRY: Spirometry demonstrates evidence of severe restriction as evidenced by decreased FEV1 of 1.76 liters or 42% predicted and decreased FVC of 2.83 liters or 39% predicted in setting of normal FEV1 over FVC ratio. Flow volume loop was with no effort but was otherwise unremarkable. Only one test was utilized here, and patient was in high Aragon's position and had trouble performing. NEUROMUSCULAR ASSESSMENT: Patient had repeat spirometry performed when supine. FEV1 was 1.75 liters or 41% predicted and FVC was 2.04 liters or 39% of predicted, which is not significantly changed from baseline and does not give high suggestion of respiratory neuromuscular weakness. Only one effort was performed here, once again due to problems and coughing. Negative inspiratory force was mildly decreased at negative 55 cm. QUALITY: Additional finding is efforts were only two seconds in duration for both supine and sitting aspects of this test, thereby limiting interpretability. SUMMARY: Spirometry suggests severe restriction. Interpretation is very limited due to limited effort and the fact that patient was not able to give us repeated measures. Mild decreased negative inspiratory force of negative 55 cm of water could suggest neuromuscular weakness versus difficulty with this maneuver. Clinical correlation is recommended. Job#: [id number] EV HEIKE
--- NOTE | 2018-06-01 15:48 | Diagnostic Imaging Report ---
PROCEDURE: X-RAY MODIFIED BARIUM SWALLOW COMPARISON: None. INDICATION: Dysphagia Radiation Details: Fluoroscopy time: 1.7 minutes Cumulative air kerma: 15.7 mGy DISCUSSION: Fluoroscopic examination was performed in conjunction with speech pathology during swallowing a variety of thin and thick liquid consistencies. Provided images demonstrate no evidence of penetration or aspiration. Vallecular and prominent pyriform sinus residue is noted. CONCLUSION: Modified barium swallow demonstrating no evidence of penetration or aspiration. Please refer to the speech pathology report for further details. Signed by: Dr. Nan Yao MD on 06/01/2018 3:45 PM
--- NOTE | 2018-06-01 18:37 | NUR ---
PATIENT IS IN STABLE CONDITION WITH NO S/S OF RESPIRATORY DISTRESS-NO PAIN VOICED. AND FAMILY MEMBERS PRESENT IN ROOM. CALL LIGHT IS WITHIN REACH, INSTRUCTED TO CALL FOR ASSISTANCE NEEDED. REPORT GIVEN TO ONCOMING NURSE. Addendum: 06/01/18 at 1917 by Kimberly Nam RN AMEND ENTRY NOTE TIME TO 1904
--- NOTE | 2018-06-01 19:18 | NUR ---
PT IS RESTING IN BED WITH FAMILY AT BEDSIDE. NO RESPIRATORY DISTRESS NOTED. BED IN LOWEST POSITION, LOCKED, AND CALL LIGHT WITHIN REACH. WILL CONTINUE TO MONITOR.
[2018-06-01] MEDS: ALBUTEROL/IPRATROPIUM 3 ML NEB NEB SCH (21:30)
[2018-06-02] VITALS (7 sets, daily range): BP systolic 131–152; BP diastolic 70–83
[2018-06-02] MEDS: ALBUTEROL/IPRATROPIUM 3 ML NEB NEB SCH ×5 (07:13→19:18)
--- NOTE | 2018-06-02 07:30 | NUR ---
PT IN BED SLEEPING NO DISTRESS NTOED ,DENIES PAIN.
[2018-06-02] MEDS: IBUPROFEN 200 MG TAB PO PRN ×3 (07:45→23:43)
[2018-06-02] MEDS: BENZONATATE 100 MG CAP PO PRN ×2 (07:45→16:55)
[2018-06-02] MEDS: CEFTRIAXONE SOD 2 GM/NS 100 ML 100 ML IV SCH (09:04)
--- NOTE | 2018-06-02 12:45 | NUR ---
PT TRANSPORTED TO MRI VIA W/C
[2018-06-02] MEDS ORDERED: GADOBENATE DIMEGLUMINE 1 ML IV ONE (14:10)
--- NOTE | 2018-06-02 14:21 | Progress Note ---
DATE: June 02, 2018 PULMONARY MEDICINE PROGRESS NOTE SUBJECTIVE: Mr. Lei was seen and examined at bedside. He continues to have slow progress. He is feeling a little bit stronger on the left side. He still has hoarse voice. He is not grossly choking on his food, but he is being careful. REVIEW OF SYSTEMS: No headaches, no bleeding. OBJECTIVE VITAL SIGNS: Afebrile. Vital signs noted per electronic record. GENERALLY: No acute distress, alert and calm. HEENT: Normocephalic, atraumatic. NECK: Supple. Throat midline. LUNGS: Bilateral air entry, clear. CARDIOVASCULAR: S1 and S2. No murmurs, rubs or gallops. ABDOMINAL: Soft, nontender. EXTREMITIES: No clubbing, no cyanosis. There is no edema. INTEGUMENT: No rash. No purpura. IMPRESSION AND PLAN 1. Left hemiparesis. 2. Left vocal cord paralysis. 3. Left eyelid droop. 4. Headaches, migraines. Continue seeking out diagnosis as per Neurology. Patient at this time will get MRI of the spine to seek out other lesions if present. Patient will continue at this time with supportive therapy. Continue physical therapy and occupational therapy. Continue modified diet with swallowing. Will follow up closely. Job#: [id number] EV
--- NOTE | 2018-06-02 15:30 | NUR ---
ORDERS FOR OP PT, OT AND SPEECH THERAPY CHOICE LETTER FOR [facility] OP DEPT SIGNED AND ON CHART COPY TO PT CM CALLED OP AND SPOKE WITH [facility] FAXED CLINICAL PH: [phone] FAX: [phone] POSSIBLE DC HOME THIS EVENING IF MRI NEGATIVE
--- NOTE | 2018-06-02 18:18 | NUR ---
PT UP IN BED NO DSITRESS NTOED,DENIES PAIN,
[2018-06-03] VITALS (7 sets, daily range): BP systolic 120–141; BP diastolic 70–77
--- NOTE | 2018-06-03 03:06 | NUR ---
Patient in bed with HOB slightly elevated. AAO x 4. No SOB noted. Bed at low position and locked. Call light within reach. Patient report of pain 0/10 at this time. No acute distress noted. Patient in stable condition, will continue to monitor.
[2018-06-03] MEDS: ALBUTEROL/IPRATROPIUM 3 ML NEB NEB SCH ×4 (07:03→20:04)
--- NOTE | 2018-06-03 07:45 | NUR ---
PT C/O HEADACHE MEDICATED,
[2018-06-03] MEDS: IBUPROFEN 200 MG TAB PO PRN ×2 (07:53→23:08)
[2018-06-03] MEDS: BENZONATATE 100 MG CAP PO PRN ×2 (08:00→23:08)
[2018-06-03] MEDS: CEFTRIAXONE SOD 2 GM/NS 100 ML 100 ML IV SCH (08:28)
--- NOTE | 2018-06-03 16:42 | Progress Note ---
DATE: June 03, 2018 PULMONARY MEDICINE PROGRESS NOTE SUBJECTIVE: Mr. Lei was seen and examined at bedside. He continues to have slow progress, but good progress. His left side is feeling stronger. His voice is more resonant. He is able to eat and notes no definite choking. REVIEW OF SYSTEMS: No constipation. No rash. OBJECTIVE VITALS: Afebrile. Vital signs noted per the chart record. GENERAL: No acute distress, alert and calm. HEENT: Normocephalic and atraumatic. Throat is midline. NECK: Supple. LUNGS: Bilateral air entry, clear mostly on the right side, but he does have some rhonchi on the left side. CARDIOVASCULAR: S1 and S2. No murmurs, rubs, or gallops. ABDOMEN: Soft and nontender. EXTREMITIES: No clubbing. No cyanosis. There is no edema. INTEGUMENT: No rash. No purpura. IMPRESSION 1. Aspiration pneumonitis. 2. Left vocal cord paralysis, dysphagia. 3. Left hemiparesis, left eyelid droop. 4. Acute neurologic syndrome. 5. History of migraines. PLAN: Continue to followup with Neurology for the best diagnosis. The patient should have continued to followup. Aspiration precautions. Continue to ensure, patient is not aspirating further. Mobilizing. Await MRI results of spine which are pending. We will follow along closely. Job#: [id number] NATE
--- NOTE | 2018-06-03 18:28 | NUR ---
PT UP IN BED DENIES PAIN
[2018-06-04 00:57] VITALS: BP 130/82
[2018-06-04 04:00] VITALS: BP 132/62
[2018-06-04] MEDS: ALBUTEROL/IPRATROPIUM 3 ML NEB NEB SCH ×3 (06:41→14:26)
[2018-06-04 07:22] VITALS: BP 133/70
[2018-06-04 07:35] VITALS: BP 133/70
[2018-06-04] MEDS: CEFTRIAXONE SOD 2 GM/NS 100 ML 100 ML IV SCH (09:30)
[2018-06-04] MEDS: ACETAMINOPHEN 325 MG TAB PO PRN (10:30)
[2018-06-04 11:35] VITALS: BP 133/74
[2018-06-04] MEDS: IBUPROFEN 200 MG TAB PO PRN (12:49)
[2018-06-04] MEDS ORDERED: MOTRIN200 MG PO (15:10)
[2018-06-04 15:34] VITALS: BP 127/88
--- NOTE | 2018-06-04 16:28 | NUR ---
PT DISCHARGED HOME ,IV DCD WITHOUT REDNESS OR SWELLING,PRESCRIPTIONS AND INSTRUCTIONS GIVEN COPY ON CHART,TRANSPORTED TO AUTO VIA W/C
--- NOTE | 2018-06-04 20:38 | Discharge Summary ---
NO DICTATION (00:02) Job#: [id number] ARCENIO
--- NOTE | 2018-06-04 21:45 | Discharge Summary ---
HOSPITAL COVERING: Dr. Menon. PRIMARY CARE DOCTOR: Dr. Argueta. PRIMARY DIAGNOSES 1. Left hemiparesis, left vocal cord paralysis, left eyelid droop, history of elevated intracranial pressure per outside report, 29 cm. Constellation of findings nonspecific. 2. Status migrainosus. 3. Left vocal cord paralysis and possibly intracranial pressure elevation, still under evaluation. HOSPITAL COURSE: Mr. Lei is a pleasant 38-year-old gentleman, who presented with constellation of these findings through outside hospital a few weeks ago. Patient underwent an extensive workup at that time with nonspecific T2 FLAIR changes that were mild, elevated intracranial pressure and has difficulty walking. He improved at that time and he was allowed to go home. He was on steroids and he got a little worse. Consideration of the steroids caused him to be a little weaker at that time. Patient with a history of migraines in the past and was given valproate and other treatment for migraines, steroids of course were off. Patient improved. ENT evaluation confirmed a left vocal cord paralysis. With some modifications, education and diet, or allow him to eat with decreased aspiration risk. Repeat MRI was done here, which continues to show very mild T2 FLAIR hyperintense changes consistent with possible small vessel disease. MRI done of the spine, which on preliminary report seems negative, but does not have a final read. He was allowed for outpatient followup since he was much better. Follow up with Dr. Argueta. Follow up with Dr. Lisandra Shane. Future testing to be followed or recommended includes follow up of final MRI reports. Patient would be considered for EMG and nerve conduction velocities. Any consideration to repeat testing of the lumbar spinal fluid per neurologist and all the decisions to be made in clinic. MEDICATIONS AT DISCHARGE: Motrin. Future modification to considered based on treatment course. DIET: Regular. ACTIVITY: As tolerated, which would include nonstrenuous work based on his current status. Greater than 30 minutes in direct care and coordination for discharge on this date. Job#: [id number] ARCENIO
--- NOTE | 2018-06-05 11:20 | Diagnostic Imaging Report ---
MRI SPINE CERVICAL WOW, MRI SPINE THORACIC WOW, MRI SPINE LUMBAR WOW HISTORY: Multiple sclerosis, meningitis; arm tingling, numbness COMPARISON: MRI of the brain 05/30/2018, head CT 05/29/2018 TECHNIQUE: Multiplanar, multisequence MRI examination of the cervical, thoracic, and lumbar spine was performed before and after the administration of intravenous, gadolinium-based contrast. 20 mL of MultiHance were administered. Motion and noise artifacts obscure some details. DISCUSSION: Cervical lordosis is straightened. Thoracic kyphosis and lumbar lordosis are preserved. There is no significant scoliosis or subluxation. No focal or diffuse marrow signal abnormalities are seen. No vertebral compression deformities are seen. There is a questionable small focus of enhancement in the left medulla (seen only on postcontrast sagittal T1 images through the cervical spine). The cord is grossly normal in signal and morphology. No abnormal spinal cord or canal enhancement is seen. The conus terminates at approximately T12-L1, which is within normal limits. The cauda equina is unremarkable. The paravertebral and paraspinal soft tissues are unremarkable. Small T2 hyperintense lesion in the upper left kidney is likely a cyst. The cervical discs are overall preserved. There is no significant canal or foraminal stenosis in the cervical spine. There is minimal disc degeneration in the thoracic and lumbar spine without significant canal or foraminal stenosis. IMPRESSION: Exam is slightly limited due to motion and noise artifacts. In spite of limitations: 1. No definite cord signal abnormalities. No abnormal enhancement in the spinal canal. 2. Minimal thoracolumbar disc degeneration without significant canal stenosis. 3. Questionable small focus of enhancement in the left medulla (seen only on postcontrast sagittal T1 images through the cervical spine). Further evaluation with contrast-enhanced brain MRI is recommended. Signed by: Dr. Eleno Whittaker M.D. on 06/05/2018 11:16 AM
== END 2018-06-04 16:26 | disposition home or self-care (01) | DRG 102 ==
LOC: ER 17:03 → ERHOLD 21:05 → INTOOBSV 21:05 → MED/SURG3 21:15 → OBSVTOIN 06-01 14:20
PROVIDERS: ADMIT Internal Medicine; ATTEND Internal Medicine
DX: G43.801 Other migraine, not intractable, with status migrainosus (principal); J69.0 Pneumonitis due to inhalation of food and vomit; N17.9 Acute kidney failure, unspecified; G81.94 Hemiplegia, unspecified affecting left nondominant side; E87.1 Hypo-osmolality and hyponatremia; E86.0 Dehydration; R49.0 Dysphonia; F17.210 Nicotine dependence, cigarettes, uncomplicated; J38.01 Paralysis of vocal cords and larynx, unilateral; J34.2 Deviated nasal septum; Z88.5 Allergy status to narcotic agent; Z83.3 Family history of diabetes mellitus; Z82.49 Family history of ischemic heart disease and other diseases of the circulatory system; R29.810 Facial weakness; H02.402 Unspecified ptosis of left eyelid; E87.6 Hypokalemia
CPT/HCPCS: 36415; 70450; 70491; 70551; 71046; 71260; 72156; 72157; 72158; 74230; 80048; 80053; 82085; 82550; 82553; 82948; 83874; 84484; 85025; 85610; 85730; 93005; 93306; 94010; 94640; 97139; 99284; G0378; J0696; J1200; J2550; J2930; J7030; Q9967

== ENCOUNTER 2018-06-13 09:03 | Outpatient (RCR) | payer BC ==
[~2018-06-13 09:03] MED LIST: MOTRIN200 MG PO
== END 2018-06-15 ==
LOC: PT 09:03
PROVIDERS: ATTEND Family Medicine
DX: I63.9 Cerebral infarction, unspecified (principal); I69.954 Hemiplegia and hemiparesis following unspecified cerebrovascular disease affecting left non-dominant side; M62.81 Muscle weakness (generalized); R26.2 Difficulty in walking, not elsewhere classified

== ENCOUNTER 2018-07-10 09:00 | Outpatient (RCR) | payer BC ==
--- NOTE | 2018-06-29 12:23 | NUR ---
Clinical Swallow Evaluation/Initial Treatment Session Patient is a 38 year old male with diagnosis of dysphagia and CVA. Pt participated in a modified barium swallow study on 05/31/18. Pt presented with moderate pharyngeal dysphagia c/b significant pharyngeal residue after the swallow and delayed initiation of swallow. Dysphagia was judged to be secondary to reduced laryngeal elevation, absent hyolaryngeal excursion, and reduced cricopharyngeal function. Recommendation was made for dysphagia therapy to increase strength and coordination of swallow. Patient was seen today in the outpatient clinic for initial treatment of Neuromuscular Electrical Stimulation (NMES) with VitalStim Therapy and traditional dysphagia therapy with pharyngeal exercises. Pt was seen with no family present. Oral motor exam revealed function that was grossly within normal limits. Patient tolerates room air. Hearing appeared to be WFL. Speech and language skills were functional. Patient reported no change in swallow skills since the modified barium swallow study. Provided extensive education re: basic anatomy and physiology of swallow structures, need for therapy, purpose of exercises and NMES, and future plan of care. Pt indicated understanding. Pt was given water and hard candy. Pt was instructed to take small sips and swallow hard, feeling all the muscles in his throat contract. Placement 3b was used to target the mylohyoid muscle, the anterior belly of the digastric muscle, the sternohyoid muscle, the omohyoid muscle, the geniohyoid muscle, and the middle pharyngeal constrictors. Channel 1 of the electrodes was aligned horizontally just above the hyoid bone and channel 2 of the electrodes was aligned horizontally at the level of the thyroid notch. This placement was used to improve base of tongue strength, pharyngeal constriction, and UES function. Pt initially tolerated 8.0 mA, but as the session progressed pt tolerated 15.5 mA. Pt received 45 minutes of stimulation. Cough noted X 1, throat clear X 4. During NMES an exercise program was presented, demonstrated, and discussed. Pt completed the exercises with minimal assistance. A home program was assigned. Pt verbalized understanding of the home exercise program. Education provided as indicated. All questions were answered. Impressions: Pt tolerated initial session of NMES well. He continues to report and demonstrate s/s of aspiration during meals which significantly interferes with his quality of life. Pt is an excellent candidate for dysphagia exercises and NMES for improvement of strength and coordination of swallow. Recommendations: 1.Dysphagia therapy to include traditional exercises and NMES 3X/week for 4 weeks for a total of 12 treatment sessions 2.Home exercise program 3.Repeat MBS in 4 weeks with new goals to be determined at that time Shelter Goal: Pt will tolerate least restrictive diet without s/s of aspiration as judged by an objective evaluation. Short Term Goals: 1.Pt will complete 3 repetitions of a set of dysphagia exercises to improve laryngeal elevation, base of tongue retraction, and laryngeal closure, 10 repetitions per exercise, with minimal cues. 2.Pt will tolerate NMES for 45 60 minutes with no clinical s/s of aspiration to improve strength of pharyngeal constrictors, hyolaryngeal excursion, and safety with po intake. 3.Pt will complete home dysphagia exercise program targeting laryngeal elevation, base of tongue strength, and cricopharyngeal function independently. 4.Pt will follow aspiration precautions with independence. 5.Pt will participate in a repeat Modified Barium Swallow study to objectively re-assess swallow safety and function and determine safest diet. Jessica Carson M.A. CCC-RECORD CUTTER Date of Session: 06/29/18 Dysphagia Evaluation X 60 minutes NOMS Rating for Swallowing: Level 6
--- NOTE | 2018-07-12 10:26 | NUR ---
ST NOTE: Pt ill, cx apt, next session 07/14/18
== END 2018-07-13 ==
LOC: PT 09:00
PROVIDERS: ATTEND Psychiatry & Neurology Clinical Neurophysiology
DX: I69.991 Dysphagia following unspecified cerebrovascular disease (principal); R13.13 Dysphagia, pharyngeal phase

== ENCOUNTER 2018-07-17 10:00 | Outpatient (RCR) | payer BC ==
--- NOTE | 2018-07-28 17:09 | NUR ---
ST Note: Pt cancelled his appointment because he could not get off of work. He was given the option to re-schedule but he declined. He plans to attend Modified Barium Swallow study scheduled 08/02/18.
== END 2018-08-13 ==
LOC: ST 10:00
PROVIDERS: ATTEND Psychiatry & Neurology Clinical Neurophysiology
DX: I69.954 Hemiplegia and hemiparesis following unspecified cerebrovascular disease affecting left non-dominant side (principal); M62.81 Muscle weakness (generalized); R26.2 Difficulty in walking, not elsewhere classified

== ENCOUNTER → 2018-08-02 | Outpatient (CLI) | payer BC ==
--- NOTE | 2018-08-02 22:25 | Diagnostic Imaging Report ---
EXAM: Modified barium swallow INDICATION: CVA COMPARISON: None FINDINGS: This examination was conducted in conjunction with speech pathologist. Patient was given, by mouth, liquids and solids of various consistencies. No premature spillage into vallecula or piriform sinuses. No aspiration or penetration. Trace performed sinus residue after the swallow. No pharyngeal wall or base of tongue residue. Fluoro time: 0.7 minutes IMPRESSION: <No evidence of aspiration. Please see speech pathology report for detailed description and recommendations.> Signed by: Dr. Griffin Cuenca M.D. on 08/02/2018 10:22 PM
== END ==
LOC: DX 14:05
PROVIDERS: ATTEND Family Medicine
DX: I69.854 Hemiplegia and hemiparesis following other cerebrovascular disease affecting left non-dominant side (principal); R13.10 Dysphagia, unspecified; M62.81 Muscle weakness (generalized); R26.2 Difficulty in walking, not elsewhere classified
CPT/HCPCS: 74230

== ENCOUNTER → 2018-10-13 | Outpatient (RCR) | payer BC | LOC: PT 10-02 15:09 | PROVIDERS: ATTEND Psychiatry & Neurology Clinical Neurophysiology | DX: M47.27 Other spondylosis with radiculopathy, lumbosacral region (principal); M47.22 Other spondylosis with radiculopathy, cervical region; M62.81 Muscle weakness (generalized); R20.2 Paresthesia of skin; M53.82 Other specified dorsopathies, cervical region; M53.87 Other specified dorsopathies, lumbosacral region ==

== ENCOUNTER 2018-11-01 17:00 | Outpatient (RCR) | payer BC | END 2018-11-12 | LOC: PT 17:00 | PROVIDERS: ATTEND Psychiatry & Neurology Clinical Neurophysiology | DX: M47.27 Other spondylosis with radiculopathy, lumbosacral region (principal); M47.22 Other spondylosis with radiculopathy, cervical region | CPT/HCPCS: 97139 ==

== ENCOUNTER → 2019-02-26 | Outpatient (CLI) | payer BC ==
--- NOTE | 2019-02-26 11:29 | Diagnostic Imaging Report ---
MRI SPINE CERVICAL WO HISTORY: Cervical spondylosis, right arm numbness COMPARISON: MRI of the cervical spine 06/02/2018; MRI of the brain 05/30/2018 TECHNIQUE: Sagittal T1, sagittal T2, sagittal inversion recovery, axial T2 and axial T1 weighted MR images of the cervical spine were obtained without intravenous contrast. Motion artifacts obscure some details. DISCUSSION: Alignment: Normal lordosis. No scoliosis. Vertebrae: No definite evidence for fractures, infection, or neoplasm. Cervicomedullary junction: Small T2/STIR hyperintense lesion is seen in the left central medulla. Enhancement was seen in this region on prior cervical spine MRI. Spinal cord: Normal in signal and morphology from the foramen magnum through T2-T3. Soft tissues: No signal abnormalities. There is minimal disc degeneration at C3-C4. No significant canal or foraminal stenosis is seen. IMPRESSION: 1. No cervical cord signal abnormalities. 2. Small T2/STIR hyperintense lesion in the left central medulla may be related to gliosis or prior demyelination. Subtle apparent enhancement was seen in this region on prior cervical spine MRI. 3. Minimal C3-C4 disc degeneration without significant canal or foraminal stenosis. Signed by: Dr. Eleno Whittaker M.D. on 02/26/2019 11:26 AM
--- NOTE | 2019-02-26 11:38 | Diagnostic Imaging Report ---
MRI SPINE LUMBAR WO HISTORY: Right leg numbness COMPARISON: Lumbar spine MRI 06/02/2018 TECHNIQUE: Sagittal T1, sagittal T2, sagittal STIR, axial T2, coronal T2, and axial proton density weighted images of the lumbar spine were obtained without contrast. DISCUSSION: Number of non-rib bearing lumbar vertebral bodies: 5. Alignment: Normal lordosis. No scoliosis. Vertebrae: No fractures, infection or neoplasm. Conus medullaris: Normal, ends at T12-L1. Cauda equina: No masses or arachnoiditis. Posterior paraspinal muscles: Well preserved. No signal abnormalities. Soft tissues: No signal abnormalities. Mild multilevel disc degeneration has minimally progressed, mainly at T12-L1 and L1-L2. T12-L1: Minimal disc bulge without significant canal or foraminal stenosis. L1-L2: New approximately 6 mm left subarticular disc extrusion (with 6 mm inferior migration) causes mild canal stenosis and effaces the left lateral recess. The disc extrusion abuts the descending left L2 nerve root. No significant foraminal stenosis. L2-L3: Minimal disc bulge without significant canal or foraminal stenosis. L3-L4: Mild bilateral foraminal stenoses due to disc bulge and facet arthrosis. No significant canal stenosis. L4-L5: Mild bilateral foraminal stenoses due to disc bulge and facet arthrosis. No significant canal stenosis. L5-S1: Minimal disc bulge without significant canal or foraminal stenosis. IMPRESSION: 1. Mild multilevel lumbar disc degeneration has slightly progressed, mainly at T12-L1 and L1-L2. 2. New 6 mm left L1-L2 subarticular disc extrusion (with 6 mm inferior migration) causes mild canal stenosis and abuts the descending left L2 nerve root. 3. Mild bilateral degenerative foraminal stenoses at L3-L4 and L4-L5. Signed by: Dr. Eleno Whittaker M.D. on 02/26/2019 11:35 AM
== END ==
LOC: MRI 08:44
PROVIDERS: ATTEND Psychiatry & Neurology Clinical Neurophysiology
DX: M47.27 Other spondylosis with radiculopathy, lumbosacral region (principal); M47.22 Other spondylosis with radiculopathy, cervical region
CPT/HCPCS: 72141; 72148